=== PATIENT | female | born 1975 | race Caucasian/White ===

== ENCOUNTER 2023-08-24 07:18 | Day surgery (SDC) | payer BC ==
[2023-08-24] MEDS ORDERED: LIDOCAINE HCL 2% 100 MG/5 ML IJ ONE (07:19)
[2023-08-24] MEDS ORDERED: DIPRIVAN 200 MG/20 ML IV ONE (09:38)
--- NOTE | 2023-08-24 10:45 | XRAY ---
Indication: Bilateral L4-S1 MBB. Intraoperative fluoroscopy provided for 14 seconds. Single digital spot images submitted for interpretation demonstrates posterior needle tips projecting over the expected left and right L4-S1 nerve roots. Correlate with intraoperative findings/report.
--- NOTE | 2023-08-24 10:47 | XRAY ---
14 seconds of fluoroscopy was used in surgery for a bilateral L4-S1 MBB.
[2023-08-24] MEDS ORDERED: Lactated Ringers 1,000 ML IV ONE (13:36)
== END 2023-08-24 10:15 | disposition home or self-care (01) ==
LOC: SDC-PAIN 07:18
PROVIDERS: ATTEND Psychiatry & Neurology Pain Medicine
DX: M47.816 Spondylosis without myelopathy or radiculopathy, lumbar region (principal); E11.9 Type 2 diabetes mellitus without complications
CPT/HCPCS: 64493; 64494; 72020; 77002; 82947; J2704

== ENCOUNTER 2023-09-21 07:08 | Day surgery (SDC) | payer BC ==
[2023-09-21] MEDS ORDERED: BUPIVACAINE 0.5% VIAL IJ ONE (07:09)
[2023-09-21] MEDS ORDERED: DIPRIVAN 200 MG/20 ML IV ONE (09:59)
[2023-09-21] MEDS ORDERED: Lactated Ringers 1,000 ML IV ONE (12:26)
--- NOTE | 2023-09-21 12:51 | XRAY ---
Indication: Bilateral L4-S1 MBB. Intraoperative fluoroscopy provided for 15 seconds. Single digital spot image submitted for interpretation demonstrate posterior needle tips projecting over the expected left and right L4-S1 nerve roots. Correlate with intraoperative findings/report.
--- NOTE | 2023-09-21 13:00 | XRAY ---
15 seconds of fluoroscopy was used in surgery for a bilateral L4-S1 MBB.
== END 2023-09-21 10:33 | disposition home or self-care (01) ==
LOC: SDC-PAIN 07:08
PROVIDERS: ATTEND Psychiatry & Neurology Pain Medicine
DX: M47.816 Spondylosis without myelopathy or radiculopathy, lumbar region (principal); E11.9 Type 2 diabetes mellitus without complications
CPT/HCPCS: 64493; 64494; 72020; 77002; 82947; J2704

== ENCOUNTER 2023-10-26 09:08 | Day surgery (SDC) | payer BC ==
[2023-10-26] MEDS ORDERED: BUPIVACAINE 0.5% VIAL IJ ONE (09:09)
[2023-10-26] MEDS ORDERED: LIDOCAINE HCL 1% 50 MG/5 ML VL PF IJ ONE (09:09)
[2023-10-26] MEDS ORDERED: Depo-Medrol 40 MG/ML IM ONE (09:09)
[2023-10-26] MEDS ORDERED: DIPRIVAN 200 MG/20 ML IV ONE ×2 (11:43→12:02)
[2023-10-26] MEDS ORDERED: Lactated Ringers 1,000 ML IV ONE (11:56)
--- NOTE | 2023-10-26 13:10 | XRAY ---
Indication: Left L4-S1 RFA. Intraoperative fluoroscopy provided for 18 seconds. 4 digital spot image submitted for interpretation demonstrates posterior needle tips projecting over expected left L4-S1 nerve roots. Correlate with intraoperative findings/report.
--- NOTE | 2023-10-26 15:17 | XRAY ---
18 seconds of fluoroscopy was used in surgery for a left L4-S1 RFA.
== END 2023-10-26 12:22 | disposition home or self-care (01) ==
LOC: SDC-PAIN 09:08
PROVIDERS: ATTEND Psychiatry & Neurology Pain Medicine
DX: M47.816 Spondylosis without myelopathy or radiculopathy, lumbar region (principal); E11.9 Type 2 diabetes mellitus without complications
CPT/HCPCS: 64635; 64636; 72100; 77002; 82947; J1010; J2001; J2704; J1030

== ENCOUNTER 2023-10-27 09:30 | Day surgery (SDC) | payer BC ==
[2023-10-27] MEDS ORDERED: LIDOCAINE HCL 1% 50 MG/5 ML VL PF IJ ONE (09:31)
[2023-10-27] MEDS ORDERED: BUPIVACAINE 0.5% VIAL IJ ONE (09:31)
[2023-10-27] MEDS ORDERED: Depo-Medrol 40 MG/ML IM ONE (09:31)
[2023-10-27] MEDS ORDERED: Lactated Ringers 1,000 ML IV ONE ×2 (11:26→11:27)
[2023-10-27] MEDS ORDERED: DIPRIVAN 200 MG/20 ML IV ONE (11:49)
[2023-10-27] MEDS ORDERED: Versed 2 MG/2 ML Injection ONE (11:50)
--- NOTE | 2023-10-27 12:41 | XRAY ---
Indication: Right L4-S1 RFA. Intraoperative fluoroscopy provided for 21 seconds. 5 digital spot image submitted for interpretation demonstrates posterior needle tips projecting over the expected right L4-S1 nerve roots. Correlate with intraoperative findings/report.
--- NOTE | 2023-10-27 12:55 | XRAY ---
21 seconds of fluoroscopy was used in surgery for a right L4-S1 RFA.
== END 2023-10-27 12:27 | disposition home or self-care (01) ==
LOC: SDC-PAIN 09:30
PROVIDERS: ATTEND Psychiatry & Neurology Pain Medicine
DX: M47.816 Spondylosis without myelopathy or radiculopathy, lumbar region (principal); E11.9 Type 2 diabetes mellitus without complications
CPT/HCPCS: 64635; 64636; 72100; 77002; 82947; J1010; J2001; J2250; J2704; J1030